=== PATIENT | female | born 1925 | race African-American/Black ===

== ENCOUNTER 2016-07-10 10:23 | Emergency (ER) | payer MEDICARE, MEDICAID ==
[2016-07-10 10:32] VITALS: TEMP 98.3; BMI 32.4
[2016-07-10 11:07] LABS: MPV 9.8 fL (7.4-10.4)
--- NOTE | 2016-07-10 11:15 | EDPRACDOC ---
- General Information Chief Complaint: Generalized Weakness Stated Complaint: WEAKNESS Time Seen by Provider: 07/10/16 10:36 Information Source: Patient Mode of Arrival: Car Home Medications: Home Medications Lovastatin [Mevacor] 40 mg PO HS 09/16/12 Meclizine HCl [Antivert] 25 mg PO QAM PRN 09/16/12 Nifedipine [Procardia Xl] 90 mg PO DAILY 09/16/12 Potassium Chloride [Klor-Con M20] 20 meq PO DAILY 09/16/12 Travoprost (Benzalkonium) [Travatan 0.004% Eye Drop] 1 drop OU HS 09/16/12 HydrALAZINE (Cardiovascular) [Apresoline] 50 mg PO BID 06/04/13 Sitagliptin Phosphate [Januvia] 50 mg PO DAILY 06/04/13 Albuterol Sulfate [Proair Hfa] 1 - 2 puff INH Q4H PRN 09/06/13 Labetalol HCl 100 mg PO BID 09/06/13 Calcitriol [Rocaltrol] 0.25 mcg PO MOWEFR 08/11/14 Cholecalciferol (Vitamin D3) [Vitamin D3 (cholecalciferol)] 5,000 unit PO DAILY 08/11/14 Dexlansoprazole [Dexilant] 30 mg PO DAILY 08/11/14 Ferrous Sulfate [Feosol] 325 mg PO DAILY 08/11/14 Torsemide [Demadex] 20 mg PO DAILY 08/11/14 Aspirin [Adult Low Dose Aspirin EC] 81 mg PO DAILY 06/08/15 [place]-3 Acid Ethyl Esters [Lovaza] 1 gm PO DAILY 06/08/15 Allergies/Adverse Reactions: Allergies Allergy/AdvReac Type Severity Reaction Status Date / Time oxycodone HCl [From Percocet] AdvReac Intermediate MADE HER Verified 07/10/16 10 :28 CRAZY - History of Present Illness Onset: TODAY HPI: PT PRESENTS TO THE ER FOR A HEMOGLOBIN OF 7.8 FOUND BY PCP ON OUTPATIENT TESTING. SHE REPORTS GENERALIZED FATIGUE FOR A LONG TIME. DENIES RECTAL BLEEDING, HEMATURIA, VAGINAL BLEEDING, OR HEMOPTYSIS. SHE SAYS SHE USED TO BE ON A SHOT TO TREAT HER ANEMIA THROUGH DR. CABRERA BUT SHE MISSED HER SHOT IN MARCH. ED Past Medical History - History Reviewed Yes Nurses notes reviewed and agree except as marked - Patient Medical History Neurological History: Reports: Cerebrovascular Accident Cardiac History: Reports: Hypertension, Congestive Heart Failure, Heart Attack, Hypercholesterolemia Respiratory History: Reports: Asthma GI/ History: Reports: Renal Disease (CHRONIC KIDNEY DISEASE), Gastroesophageal Reflux. Denies: Urinary Tract Infection Psychological History: Denies: Depression Systemic History: Reports: Anemia (CRI (Dr. Cabrera)), Diabetes. Denies: Cancer Surgical History: Reports: Hysterectomy - Family Medical History Reports: Hypertension (Mother), Diabetes (son), Stroke (Mother), Cardiac Disorders (Sister). Denies: Cancer - Social Medical History Smoking Status: Never smoker Lives In: Home EDM Review of Systems - Review of Systems ROS Negative Except as Marked: Yes All systems reviewed and were negative except as marked Constitutional: Fatigue Respiratory: negative: Hemoptysis, Shortness of Breath Cardiovascular: negative: Chest Pain Gastrointestinal: negative: Melena, Pain, Vomiting Genitourinary: negative: Hematuria, Vaginal Bleeding - Physical Exam Constitutional: Alert Oriented to: Time, Person, Place Last recorded Vital Signs: Last Vital Signs Temp 98.3 F 07/10/16 10:24 Pulse 75 07/10/16 10:38 Resp 24 07/10/16 10:38 BP 192/84 H 07/10/16 10:38 Pulse Ox 95 07/10/16 10:38 Oxygen Pulse Oxygen Saturation 95 O2 Device Room Air Oxygen Flow Rate Fraction of Inspired Oxygen ( FIO2) - HEENT Head: negative: Deformity, Laceration Eye Exam: Pale Conjunctiva. negative: Conjunctival Injection Oropharynx: negative: Membranes Dry Nose: negative: Congestion, Discharge Neck: negative: Limited ROM - Respiratory/Cardiovascular Respiratory: Normal - CTA. negative: Accessory Muscle Use, Diminished, Tachypnea Cardiovascular: negative: Bradycardia, Tachycardia, Irregular - GI Auscultation: Normal Palpation: Normal Tenderness: Non tender - Musculoskeletal Extremities: Pedal Edema (1+ PT REPORTS CHRONIC/UNCHANGED), Radial Pulse ( PALPABLE) - Integumentary Skin: Warm, Dry. negative: Rash - Neurologic Memory Impaired: Normal Motor Function: Normal Mood Description: Appropriate Thought: Coherent Perception: Normal - Results 07/10/16 10:45 07/10/16 10:45 WBC 8.1 xk/uL (3.8-10.8) 07/10/16 10:45 RBC 3.06 xM/uL (4.20-5.40) L 07/10/16 10:45 Hgb 7.9 g/dL (12.0-16.0) L 07/10/16 10:45 Hct 24.8 % (36-47) L 07/10/16 10:45 MCV 81 fL (81-99) 07/10/16 10:45 MCH 25.7 pg (27-32) L 07/10/16 10:45 MCHC 31.7 g/dl (33-36) L 07/10/16 10:45 RDW 14.1 % (11.5-14.5) 07/10/16 10:45 Plt Count 179 xk/uL (130-400) 07/10/16 10:45 MPV 9.8 fL (7.4-10.4) 07/10/16 10:45 Lab Results 07/10/16 10:45 WBC 8.1 RBC 3.06 L Hgb 7.9 L Hct 24.8 L MCV 81 MCH 25.7 L MCHC 31.7 L RDW 14.1 Plt Count 179 MPV 9.8 Decision Time to Discharge: 12:57 - Departure Yes I personally saw and evaluated the patient. Disposition: Home Condition: Stable Final Diagnosis: Chronic anemia Instructions: Anemia Education/Counseling Given To: Patient, Family Member Education/Counseling Given Regarding: Diagnosis, Treatment, Prognosis, Follow Up Referrals: Seble Beal MD [Primary Care Provider] - Call for Appointment Additional Instructions: YOU SHOULD CONTACT DR. BEAL'S OFFICE OR DR. CABRERA'S OFFICE TO RESTART YOUR INJECTION TO INCREASE YOUR RED BLOOD CELL COUNT.
[2016-07-10 11:23] LABS: BLOOD UREA NITROGEN 41 MG/DL (7-17); CALCIUM 8.9 MG/DL (8.4-10.2); CALCULATED OSMOLALITY 286 MOs/Kg (270-290); CHLORIDE 105 mEq/L (98-107); GLUCOSE 108 MG/DL (70-99); SODIUM LEVEL 143 mEq/L (137-146); TOTAL PROTEIN 7.3 G/DL (6.3-8.2)
[2016-07-10 11:30] LABS: PARTIAL THROMB. TIME 25.2 SEC (22-35)
[2016-07-10 11:52] LABS: SEG NEUTROPHIL 66 % (45-76)
[2016-07-10 12:54] VITALS: BP 196/85; PULSE 71
== END 2016-07-10 13:12 | disposition home or self-care (01) ==
LOC: ED 10:23
DX: D64.9 Anemia, unspecified (principal)
CPT/HCPCS: 36415; 80053; 84484; 85007; 85027; 85610; 85730; 93005; 99284

== ENCOUNTER 2016-07-28 12:07 | Inpatient (IN) | payer MEDICARE, MEDICAID ==
--- NOTE | 2016-07-28 12:48 | EDPRACDOC ---
- General Information Chief Complaint: Dyspnea/Resp distress Stated Complaint: RESP. 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 Home Medications: Home Medications Lovastatin [Mevacor] 40 mg PO HS 09/16/12 Meclizine HCl [Antivert] 25 mg PO QAM PRN 09/16/12 Nifedipine [Procardia Xl] 90 mg PO DAILY 09/16/12 Potassium Chloride [Klor-Con M20] 20 meq PO DAILY 09/16/12 Travoprost (Benzalkonium) [Travatan 0.004% Eye Drop] 1 drop OU HS 09/16/12 Sitagliptin Phosphate [Januvia] 50 mg PO DAILY 06/04/13 Albuterol Sulfate [Proair Hfa] 2 puff INH Q4-6H PRN 09/06/13 Labetalol HCl 100 mg PO BID 09/06/13 Dexlansoprazole [Dexilant] 30 mg PO DAILY 08/11/14 Ferrous Sulfate [Feosol] 325 mg PO DAILY 08/11/14 Torsemide [Demadex] 20 mg PO BID 08/11/14 Aspirin [Adult Low Dose Aspirin EC] 81 mg PO DAILY 06/08/15 HydrALAZINE (Cardiovascular) [Apresoline] 50 mg PO TID 07/15/16 [place]-3 Acid Ethyl Esters [Lovaza] 1 gm PO BID 07/28/16 PEG-Electrolytes (Miralax) [Miralax] 17 gm PO DAILY PRN 07/28/16 Allergies/Adverse Reactions: Allergies Allergy/AdvReac Type Severity Reaction Status Date / Time azithromycin [From Zithromax] Allergy Unknown Verified 07/28/16 12:51 isosorbide Allergy Dizziness Verified 07/28/16 12:51 liraglutide [From Victoza] Allergy Nausea/Vomi Verified 07/28/16 12:51 ting meloxicam [From Mobic] Allergy Unknown Verified 07/28/16 12:51 olmesartan [From Benicar] Allergy Unknown Verified 07/28/16 12:51 oxycodone HCl [From Percocet] AdvReac Intermediate MADE HER Verified 07/28/16 12 :29 CRAZY - History of Present Illness Onset: 5 DAYS HPI: SEVERAL DAYS OF SHORTNESS OF BREATH AGGRAVATED BY LYING FLAT ASSOCIATED WITH PND. NO FEVER CHILLS. NO COUGH. NO CHEST PAIN. RECENT BLOOD TRANSFUSION 2 UNITS FOR ANEMIA CHRONIC DISEASE. SEEN PCP 'S OFFICE TODAY ABNORMAL EKG SHORT OF BREATH REFER TO ED. 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 Denies: Pneumonia GI/ History: Reports: Renal Disease (CHRONIC KIDNEY DISEASE), Gastroesophageal Reflux, Diverticulosis. Denies: Urinary Tract Infection Musculoskeletal History: Reports: Arthritis Psychological History: Reports: Anxiety. Denies: Depression Systemic History: Reports: Anemia (CRI (Dr. Eubanks)), Diabetes. Denies: Cancer Surgical History: Reports: Appendectomy, Cholecystectomy, Hysterectomy - Family Medical History Reports: Hypertension (Mother), Diabetes (son), Stroke (Mother), Cardiac Disorders (Sister). Denies: Cancer - Social Medical History Smoking Status: Former smoker ETOH: None Substance Abuse: None Lives With: Family Lives In: Home EDM Review of Systems - Review of Systems ROS Negative Except as Marked: Yes All systems reviewed and were negative except as marked - Physical Exam Constitutional: Alert (Awake), No apparent distress Oriented to: Time, Person, Place Last recorded Vital Signs: Last Vital Signs Temp 98.3 F 07/28/16 12:15 Pulse 67 07/28/16 12:15 Resp 20 07/28/16 12:15 BP 227/97 H 07/28/16 12:15 Pulse Ox 93 07/28/16 12:15 Oxygen Pulse Oxygen Saturation 93 O2 Device Oxygen Flow Rate Fraction of Inspired Oxygen ( FIO2) - HEENT Head: Normal ( normocephalic) Eye Exam: Normal (PERRL, EOMI, Sclera white) Oropharynx: Normal (Pharynx:Moist without exudate,Gums-no swelling) Tympanic Membrane: Normal Neck: Normal (FROM, trachea at midline) - Respiratory/Cardiovascular Respiratory: Rales. negative: Accessory Muscle Use, Rhonchi, Tachypnea, Wheezes Cardiovascular: Normal (RRR without murmur, gallop or rub) - GI Auscultation: Normal (NABS) Palpation: Normal (Soft,No rebound or guarding, non distended) Tenderness: Non tender Albarran's Sign: Negative - Musculoskeletal Back: Normal (Non-Tender) Extremities: Normal (Normal tone, Pulses 2+ No cyanosis or edema, FROM). negative: Pedal Edema - Integumentary Skin: Normal, Warm, Dry Lymphatics: Normal (no adenopathy) - Neurologic Memory Impaired: Normal Motor Function: Normal (Normal tone, Pulses 2+ No cyanosis or edema, FROM) Cranial Nerve: Normal (CN II-X11 intact sensation, strength 5/5) Cerebellar: Normal Mood Description: Normal Thought: Coherent Perception: Normal ED SOB MDM - Results Result Diagrams: 07/28/16 12:45 07/28/16 12:45 - EKG EKG #1 EKG Time: 12:22 -: Yes EKG interpreted by me Rate: bpm: 69 [place]: Normal Rhythm: NSR Block: None Hypertrophy: None Comments: PROLONGED QT Comparison: 07/10/16 (SIMILAR) - Departure Disposition: Home Condition: Stable Final Diagnosis: Hypertensive urgency, Acute decompensated heart failure Instructions: *Heart Failure (Activity, Diet, Worsening Symptoms, Weight Monitoring)(ED), Chronic Hypertension (ED) Education/Counseling Given To: Patient, Family Member Education/Counseling Given Regarding: Diagnosis, Treatment, Prognosis Referrals: None,No Provider [NonStaff] - One Week Prescriptions: No Action Lovastatin [Mevacor] 40 mg PO HS Potassium Chloride [Klor-Con M20] 20 meq PO DAILY Nifedipine [Procardia Xl] 90 mg PO DAILY Meclizine HCl [Antivert] 25 mg PO QAM PRN PRN Reason: Dizziness Travoprost (Benzalkonium) [Travatan 0.004% Eye Drop] 1 drop OU HS Sitagliptin Phosphate [Januvia] 50 mg PO DAILY Albuterol Sulfate [Proair Hfa] 2 puff INH Q4-6H PRN PRN Reason: Shortness Of Breath Labetalol HCl 100 mg PO BID Dexlansoprazole [Dexilant] 30 mg PO DAILY Torsemide [Demadex] 20 mg PO BID Ferrous Sulfate [Feosol] 325 mg PO DAILY Aspirin [Adult Low Dose Aspirin EC] 81 mg PO DAILY HydrALAZINE (Cardiovascular) [Apresoline] 50 mg PO TID PEG-Electrolytes (Miralax) [Miralax] 17 gm PO DAILY PRN PRN Reason: Constipation [place]-3 Acid Ethyl Esters [Lovaza] 1 gm PO BID Decision to Admit Time: 15:05 Decision to admit date: 07/28/16 Decision to admit: from ED - Physician Consulted Hospitalist Time Called: 13:58 Provider Called: Denis Farfan Time Human Capital Consultant Returned Call: 15:05
[2016-07-28 13:05] LABS: AUTOMATED BASOPHIL 0.7 % (0-2); AUTOMATED EOSINOPHIL 3.4 % (0-5); AUTOMATED LYMPH 15.9 % (17-44); AUTOMATED MONOCYTE 11.2 % (3-10); AUTOMATED NEUTROPHIL 68.8 % (45-76); MPV 9.7 fL (7.4-10.4)
[2016-07-28 13:11] LABS: PARTIAL THROMB. TIME 25.7 SEC (22-35)
[2016-07-28 13:14] LABS: BLOOD UREA NITROGEN 34 MG/DL (7-17); CALCIUM 8.8 MG/DL (8.4-10.2); CALCULATED OSMOLALITY 283 MOs/Kg (270-290); CHLORIDE 105 mEq/L (98-107); GLUCOSE 94 MG/DL (70-99); SODIUM LEVEL 143 mEq/L (137-146); TOTAL PROTEIN 7.5 G/DL (6.3-8.2)
[2016-07-28] MEDS ORDERED: FUROSEMIDE 40 MG/4 ML VIAL IV ONE ×2 (13:52→17:04)
[2016-07-28] MEDS ORDERED: NITROGLYCERINE 2 % OINTMENT PACK TOP ONE (13:53)
[2016-07-28] MEDS ORDERED: LABETALOL 20 MG/4 ML SYRINGE IV ONE (13:57)
--- NOTE | 2016-07-28 14:01 | DIRPT ---
CLINICAL DATA: 89-year-old presenting with several day history of shortness of breath which is worse when in the supine position. By report, abnormal EKG at primary provider's office earlier today. EXAM: CHEST 2 VIEW COMPARISON: 06/08/2015 and earlier. FINDINGS: Cardiac silhouette moderately enlarged. Thoracic aorta atherosclerotic and mildly tortuous, unchanged. Hilar and mediastinal contours otherwise unremarkable. Mild diffuse interstitial pulmonary edema and small bilateral pleural effusions, best seen on the lateral image. No confluent airspace consolidation. 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 IMPRESSION: Mild CHF, with stable moderate cardiomegaly, mild diffuse interstitial pulmonary edema and small bilateral pleural effusions. Electronically Signed By: Denis Cannon M.D. On: 07/28/2016 13:58
[2016-07-28] MEDS ORDERED: SIMETHICONE 80 MG TAB PO PRN (15:46)
[2016-07-28] MEDS ORDERED: GLUCAGON 1 MG VIAL SQ PRN (15:46)
[2016-07-28] MEDS ORDERED: ACETAMINOPHEN 325 MG/TAB TABLET PO PRN (15:46)
[2016-07-28] MEDS ORDERED: TEMAZEPAM 15 MG CAP PO PRN (15:46)
[2016-07-28] MEDS ORDERED: METOCLOPRAMIDE 10 MG/2 ML VIAL IV PRN (15:46)
[2016-07-28] MEDS ORDERED: SODIUM CHLORIDE 0.9% 3 ML FLUSH FLUSH PRN (15:46)
[2016-07-28] MEDS ORDERED: ONDANSETRON HCL 4 MG/2 ML VIAL IV PRN (15:46)
[2016-07-28] MEDS ORDERED: DOCUSATE-SENNA CONCENTRATE TAB PO PRN (15:46)
[2016-07-28] MEDS ORDERED: BENZONATATE 100 MG PERLES PO PRN (15:46)
[2016-07-28] MEDS ORDERED: DEXTROSE 25 GM/50 ML PFS IV PRN (15:46)
[2016-07-28] MEDS ORDERED: GLUCOSE (ORAL GEL) 15 GM TUBE PO PRN (15:46)
[2016-07-28] MEDS ORDERED: ACETAMINOPHEN 650 MG SUPP PR PRN (15:46)
[2016-07-28] MEDS ORDERED: MECLIZINE 25 MG TAB PO PRN (15:50)
[2016-07-28] MEDS ORDERED: ALBUTEROL 6.7 GM MDI INH PRN (15:50)
[2016-07-28] MEDS ORDERED: PEG-ELECTROLYTE 17 GM PACK PO PRN (15:50)
--- NOTE | 2016-07-28 15:56 | HISTPHYS ---
- Chief Complaint short of breath, dizziness - History of Present Illness Megan mooney is a 89 year old Afro [place] Woman who presents with increasing shortness of breath which has become much worse the past three days. She notes it is made worse by lying down or walking around her house. When she lies down at night she has to get up again by 2:00 or 3:00 am to sit up in a chair because she can not breathe lying down. She denies chest pain per se, but notes heaviness and a tight feeling. Her blood pressure is very high o arrival to the ED and yet she is on 3 different blood pressure medications, which she takes as directed. She does not smoke or drink alcohol. 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 Denies: Pneumonia GI/ History: Reports: Renal Disease (CHRONIC KIDNEY DISEASE-3), Gastroesophageal Reflux, Diverticulosis (Hx SBO). Denies: Urinary Tract Infection Musculoskeletal History: Reports: Arthritis Systemic History: Reports: Anemia (CRI (Dr. Eubanks)), Diabetes. Denies: Cancer Neurological History: Reports: Cerebrovascular Accident Psychological History: Reports: Anxiety. Denies: Depression - Surgical History Reports: Appendectomy, Cholecystectomy, Hysterectomy - Medictions/Allergies Allergies azithromycin [From Zithromax] Allergy (Verified 07/28/16 12:51) Unknown isosorbide Allergy (Verified 07/28/16 12:51) Dizziness liraglutide [From Victoza] Allergy (Verified 07/28/16 12:51) Nausea/Vomiting meloxicam [From Mobic] Allergy (Verified 07/28/16 12:51) Unknown olmesartan [From Benicar] Allergy (Verified 07/28/16 12:51) Unknown oxycodone HCl [From Percocet] Adverse Reaction (Intermediate, Verified 07/28/16 12:29) MADE HER CRAZY Home Medications Lovastatin [Mevacor] 40 mg PO HS 09/16/12 Meclizine HCl [Antivert] 25 mg PO QAM PRN 09/16/12 Nifedipine [Procardia Xl] 90 mg PO DAILY 09/16/12 Potassium Chloride [Klor-Con M20] 20 meq PO DAILY 09/16/12 Travoprost (Benzalkonium) [Travatan 0.004% Eye Drop] 1 drop OU HS 09/16/12 Sitagliptin Phosphate [Januvia] 50 mg PO DAILY 06/04/13 Albuterol Sulfate [Proair Hfa] 2 puff INH Q4-6H PRN 09/06/13 Labetalol HCl 100 mg PO BID 09/06/13 Dexlansoprazole [Dexilant] 30 mg PO DAILY 08/11/14 Ferrous Sulfate [Feosol] 325 mg PO DAILY 08/11/14 Torsemide [Demadex] 20 mg PO BID 08/11/14 Aspirin [Adult Low Dose Aspirin EC] 81 mg PO DAILY 06/08/15 HydrALAZINE (Cardiovascular) [Apresoline] 50 mg PO TID 07/15/16 [place]-3 Acid Ethyl Esters [Lovaza] 1 gm PO BID 07/28/16 PEG-Electrolytes (Miralax) [Miralax] 17 gm PO DAILY PRN 07/28/16 - Family History Reports: Hypertension (Mother), Diabetes (son), Stroke (Mother), Cardiac Disorders (Sister). Denies: Cancer - Social History Travel Outside of [place] in the Last 3 Months?: No Lives: With Family Smoking Status: Former smoker Social History: Denies: Alcohol Use - Review of Systems Constitutional: Fatigue, Weakness. negative: Chills, Fever Eyes: No Symptoms Reported Ears: No Symptoms Reported Nose: No Symptoms Reported Mouth: Denture, Poor Dentition Throat/Neck: No Symptoms Reported Respiratory: Cough, Shortness of Breath, Asthma, Dyspnea Cardiovascular: Edema (legs swell when she stands up or sits with legs down), Orthopnea, PND. negative: Chest Pain Gastrointestinal: Constipation, Heartburn. negative: Nausea, Vomiting, Abdominal Pain Genitourinary: Frequency, Postmenopause Neurological: Gait Difficulty, Weakness Musculoskeletal:: Osteoarthritis, Weakness Integumentary: No Symptoms Reported Allergic/Immunologic: No Symptoms Reported Hematologic: Anemia Endocrine: Osteopenia, Diabetes Psychiatric: No Symptoms Reported - Physical Exam Vital Signs: Initial Vitals Temperature 98.3 F 07/28/16 12:15 Pulse Rate 67 07/28/16 12:15 Respiratory Rate 20 07/28/16 12:15 Blood Pressure 227/97 H 07/28/16 12:15 Pulse Oxygen Saturation 93 07/28/16 12:15 Constitutional: No apparent distress, Alert Oriented to: Time, Person, Place - HEENT Head: Normal Eye: Normal (PERRL: EOMI) Oropharynx: Normal, Other (dentures) Tympanic Membrane: Dull ENT EAC: Cerumen Nose: No Symptoms Reported. negative: Bleeding, Congestion, Discharge, Deformity Respiratory: Diminished. negative: Rales, Retractions, Rhonchi Cardiovascular: Bradycardia (regular rhythm and rate, 2/6 sys murmur LLSB) - GI Auscultation: Normal Palpation: Normal (no mass, nondistended). negative: Enlarged liver, Enlarged spleen, Fluid Wave Tenderness: Non tender Albarran's Sign: Negative Rectal Exam: Deferred - Musculoskeletal Back: Normal Extremities: Normal, Edema (trace to 1+) Spine: non-tender, normal alignment, normal inspection - Integumentary Skin: Warm, Dry. negative: Rash Lymphatics: Normal - Neurologic Memory Impaired: Normal Motor Function: Normal Cranial Nerve: Normal Cerebellar: Normal Mood Description: Normal, Appropriate, Calm Thought: Coherent Perception: Normal - Focused CV Perfusion Exam Vital Signs: Last Vital Signs Temp 98.3 F 07/28/16 12:15 Pulse 68 07/28/16 15:32 Resp 20 07/28/16 15:32 BP 199/86 H 07/28/16 15:32 Pulse Ox 93 07/28/16 15:00 - Lab Results Laboratory Tests 07/28/16 07/28/16 07/28/16 12:45 12:45 12:45 WBC 8.1 Hgb 9.1 L Hct 28.2 L Plt Count 183 Neut % (Auto) 68.8 Lymph % (Auto) 15.9 L [place] % (Auto) 11.2 H PT 10.6 INR 1.0 APTT 25.7 Sodium 143 Potassium 4.6 Chloride 105 Carbon Dioxide 28 Anion Gap 15 BUN 34 H Creatinine 2.60 H Estimated GFR (MDRD) 21 L Glucose 94 POC Capillary Glucose Hemoglobin A1c Calculated Osmolality 283 Calcium 8.8 Total Bilirubin 0.6 AST 22 ALT 29 Alkaline Phosphatase 106 Troponin I < 0.01 [id number]-Ddszrhyrljo Pept 4910 H Total Protein 7.5 Albumin 4.1 07/28/16 07/28/16 07/28/16 12:45 16:08 16:51 WBC Hgb Hct Plt Count Neut % (Auto) Lymph % (Auto) [place] % (Auto) PT INR APTT Sodium Potassium Chloride Carbon Dioxide Anion Gap BUN Creatinine Estimated GFR (MDRD) Glucose POC Capillary Glucose 88 Hemoglobin A1c 4.9 Calculated Osmolality Calcium Total Bilirubin AST ALT Alkaline Phosphatase Troponin I 0.01 [id number]-[id number] Pept Total Protein Albumin - Diagnostic Findings EKG: sinus rhythm 68 bpm, NS-IVCD, probably septal [place] age undetermined, [address] elevation V2-3, consider anterior ischemia vs early repolarization CXR:IMPRESSION: Mild CHF, with stable moderate cardiomegaly, mild diffuse interstitial pulmonary edema and small bilateral pleural effusions. Electronically Signed By: Denis Cannon M.D. On: 07/28/2016 13:58 - Assessment (1) Hypertensive urgency I16.0 - HYPERTENSIVE URGENCY Acute Present on Admission: Yes Observation on telemetry, increase dose of Labetolol from 100 mg to 200 mg BID, diurese patient with additional doses of furosemide and recheck labs in AM. If she is breathing better and BP is controlled, she can perhaps be discharged in 24 hours. (2) Acute decompensated heart failure I50.9 - HEART FAILURE, UNSPECIFIED Acute Present on Admission: Yes Very mild exacerbation of diastolic CHF. Her chest is clear on exam, but CXR does reveal increased interstitial edema. She is symptomatic, so will diurese with additional doses of IV furosemide. (3) Anemia of chronic disease D63.8 - ANEMIA IN OTHER CHRONIC DISEASES CLASSIFIED ELSEWHERE Acute Present on Admission: Yes Is followed by Dr. Eubanks for this in hematology clinic. Current Hg =9.1 g/dL. 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 Case Care Discussed with: Patient, Nursing Staff Total Time: 65 min Critical Care: No Couseling Time (>50% in counseling/coordination): Yes Code: 62523
[2016-07-28] MEDS ORDERED: TRAVOPROST 0.004% OPHTH SOLN 2.5 ML BOTTLE OU SCH (16:00)
[2016-07-28] MEDS: OMEGA-3-ACID ETHYL ESTERS 1000 MG CAP PO SCH (16:55)
[2016-07-28] MEDS: TORSEMIDE 20 MG TAB PO SCH (16:55)
[2016-07-28] MEDS: SODIUM CHLORIDE 0.9% 3 ML FLUSH FLUSH SCH (16:56)
[2016-07-28] MEDS: ENOXAPARIN 40 MG/0.4 ML PFS SQ SCH (16:56)
[2016-07-28] MEDS: REGULAR INSULIN 100 UNITS/ML - 3 ML VIAL SQ SCH ×2 (16:56→22:38)
[2016-07-28] MEDS ORDERED: Vaccine Screening Complete SCH (17:00)
[2016-07-28] MEDS ORDERED: TRAVOPROST OU SCH (21:00)
[2016-07-28] MEDS ORDERED: LOVASTATIN 40 MG PO SCH (21:00)
[2016-07-28] MEDS: TRAVOPROST 0.004% OPHTH SOLN 2.5 ML BOTTLE OU SCH (21:05)
[2016-07-28] MEDS: PRAVASTATIN 40 MG TABLET PO SCH (21:05)
[2016-07-28] MEDS: LABETALOL 100 MG TAB PO SCH (21:08)
[2016-07-29 02:54] VITALS: BMI 33.1
[2016-07-29] MEDS: PANTOPRAZOLE 40 MG TAB PO SCH (05:30)
[2016-07-29] MEDS: FUROSEMIDE 40 MG/4 ML VIAL IV SCH ×2 (05:30→17:25)
[2016-07-29] MEDS: SODIUM CHLORIDE 0.9% 3 ML FLUSH FLUSH SCH ×2 (05:31→17:26)
[2016-07-29] MEDS: REGULAR INSULIN 100 UNITS/ML - 3 ML VIAL SQ SCH ×4 (05:35→21:46)
[2016-07-29 05:43] LABS: MPV 10.4 fL (7.4-10.4)
[2016-07-29] MEDS: SITAGLIPTIN 50 MG TAB PO SCH (06:05)
[2016-07-29 06:18] LABS: BLOOD UREA NITROGEN 36 MG/DL (7-17); CALCIUM 8.8 MG/DL (8.4-10.2); CALCULATED OSMOLALITY 282 MOs/Kg (270-290); CHLORIDE 103 mEq/L (98-107); GLUCOSE 83 MG/DL (70-99); LDL (calc.) 102.4 MG/DL (<100); SODIUM LEVEL 143 mEq/L (137-146); VLDL (calc.) 27.6 MG/DL (5-40)
[2016-07-29] MEDS: LABETALOL 100 MG TAB PO SCH ×2 (08:27→21:57)
[2016-07-29] MEDS: POTASSIUM CHLORIDE 20 MEQ TAB PO SCH (08:27)
[2016-07-29] MEDS: TORSEMIDE 20 MG TAB PO SCH (08:28)
[2016-07-29] MEDS ORDERED: NIFEDIPINE 90 MG PO SCH (09:00)
[2016-07-29] MEDS ORDERED: Non-Formulary Medication ITEM (Ferrous Sulfate [Feosol] 325 MG) PO SCH (09:00)
[2016-07-29] MEDS ORDERED: SITAGLIPTIN PHOSPHATE 50 MG PO SCH (09:00)
[2016-07-29] MEDS ORDERED: DEXLANSOPRAZOLE 30 MG PO SCH (09:00)
[2016-07-29] MEDS: OMEGA-3-ACID ETHYL ESTERS 1000 MG CAP PO SCH ×2 (12:00→17:23)
[2016-07-29] MEDS: FERROUS SULFATE 324 MG TAB PO SCH (12:00)
[2016-07-29] MEDS ORDERED: Vaccine Screening Complete SCH (13:00)
--- NOTE | 2016-07-29 15:34 | GENMEDPROG ---
Chief Complaint: HYPERTENSIVE URGENCY, DM-2, CHF, CKD-3 - Physical Examination Vital Signs and I&O: Last Vital Signs Temp 98 F 07/29/16 12:00 Pulse 65 07/29/16 12:19 Resp 18 07/29/16 12:00 BP 157/62 07/29/16 12:00 Pulse Ox 91 07/29/16 12:00 Oxygen Pulse Oxygen Saturation 91 O2 Device Nasal Cannula Oxygen Flow Rate 1 Fraction of Inspired Oxygen ( FIO2) Intake & Output 07/26/16 07/27/16 07/28/16 07/29/16 23:59 23:59 23:59 23:59 Intake Total 240 Output Total 850 300 Balance -610 -300 Patient's weight 84.867 kg Lymphatics: Normal Respiratory: Diminished. negative: Rales, Retractions, Rhonchi - Assessment (1) Hypertensive urgency Acute I16.0 - HYPERTENSIVE URGENCY Comment/Plan: Observation on telemetry, increase dose of Labetolol from 100 mg to 200 mg BID, diurese patient with additional doses of furosemide and recheck labs in AM. If she is breathing better and BP is controlled, she can perhaps be discharged in 24 hours. (2) Acute decompensated heart failure Acute I50.9 - HEART FAILURE, UNSPECIFIED Comment/Plan: Very mild exacerbation of diastolic CHF. Her chest is clear on exam, but CXR does reveal increased interstitial edema. She is symptomatic, so will diurese with additional doses of IV furosemide. (3) Anemia of chronic disease Acute D63.8 - ANEMIA IN OTHER CHRONIC DISEASES CLASSIFIED ELSEWHERE Comment/ Plan: Is followed by Dr. Eubanks for this in hematology clinic. Current Hg =9.1 g /dL. 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
[2016-07-29] MEDS: ENOXAPARIN 40 MG/0.4 ML PFS SQ SCH (17:25)
[2016-07-29] MEDS: TRAVOPROST 0.004% OPHTH SOLN 2.5 ML BOTTLE OU SCH (21:57)
[2016-07-29] MEDS: PRAVASTATIN 40 MG TABLET PO SCH (21:57)
[2016-07-30] MEDS: FUROSEMIDE 40 MG/4 ML VIAL IV SCH (05:21)
[2016-07-30] MEDS: PANTOPRAZOLE 40 MG TAB PO SCH (05:21)
[2016-07-30] MEDS: SODIUM CHLORIDE 0.9% 3 ML FLUSH FLUSH SCH (05:25)
[2016-07-30] MEDS: REGULAR INSULIN 100 UNITS/ML - 3 ML VIAL SQ SCH ×3 (05:38→17:09)
[2016-07-30] MEDS: OMEGA-3-ACID ETHYL ESTERS 1000 MG CAP PO SCH (07:32)
[2016-07-30] MEDS: LABETALOL 100 MG TAB PO SCH (07:32)
[2016-07-30] MEDS: SITAGLIPTIN 50 MG TAB PO SCH (07:32)
[2016-07-30] MEDS: POTASSIUM CHLORIDE 20 MEQ TAB PO SCH (07:33)
[2016-07-30] MEDS ORDERED: METOCLOPRAMIDE 10 MG/2 ML VIAL IV PRN (09:28)
[2016-07-30] MEDS: FERROUS SULFATE 324 MG TAB PO SCH (11:53)
[2016-07-30 12:50] VITALS: BP 165/51; TEMP 98.2
--- NOTE | 2016-07-30 13:54 | GENMEDPROG ---
- Physical Examination Vital Signs and I&O: Last Vital Signs Temp 98.2 F 07/30/16 12:00 Pulse 66 07/30/16 13:27 Resp 20 07/30/16 12:00 BP 165/51 L 07/30/16 12:00 Pulse Ox 93 07/30/16 12:00 Oxygen Pulse Oxygen Saturation 93 O2 Device Room Air Oxygen Flow Rate Fraction of Inspired Oxygen ( FIO2) Intake & Output 07/27/16 07/28/16 07/29/16 07/30/16 23:59 23:59 23:59 23:59 Intake Total 120 340 Output Total 400 1300 Balance -280 -960 Patient's weight 80.467 kg Lymphatics: Normal Respiratory: Diminished. negative: Rales, Retractions, Rhonchi - Assessment (1) Hypertensive urgency Acute I16.0 - HYPERTENSIVE URGENCY Comment/Plan: Observation on telemetry, increase dose of Labetolol from 100 mg to 200 mg BID, diurese patient with additional doses of furosemide and recheck labs in AM. If she is breathing better and BP is controlled, she can perhaps be discharged in 24 hours. (2) Acute decompensated heart failure Acute I50.9 - HEART FAILURE, UNSPECIFIED Comment/Plan: Very mild exacerbation of diastolic CHF. Her chest is clear on exam, but CXR does reveal increased interstitial edema. She is symptomatic, so will diurese with additional doses of IV furosemide. (3) Anemia of chronic disease Acute D63.8 - ANEMIA IN OTHER CHRONIC DISEASES CLASSIFIED ELSEWHERE Comment/ Plan: Is followed by Dr. Eubanks for this in hematology clinic. Current Hg =9.1 g /dL. 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
--- NOTE | 2016-07-30 15:33 | CAPUEKG ---
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
[2016-07-30 15:47] VITALS: PULSE 63
--- NOTE | 2016-07-30 16:00 | PCM.DCS92 ---
- Final/Secondary Discharge Diagnosis (1) Hypertensive urgency Acute I16.0 - HYPERTENSIVE URGENCY Present on Admission: Yes Comment: Observation on telemetry, increase dose of Labetolol from 100 mg to 200 mg BID, diurese patient with additional doses of furosemide and recheck labs in AM. If she is breathing better and BP is controlled, she can perhaps be discharged in 24 hours. (2) Acute decompensated heart failure Acute I50.9 - HEART FAILURE, UNSPECIFIED Present on Admission: Yes Comment: Very mild exacerbation of diastolic CHF. Her chest is clear on exam, but CXR does reveal increased interstitial edema. She is symptomatic, so will diurese with additional doses of IV furosemide. (3) Anemia of chronic disease Acute D63.8 - ANEMIA IN OTHER CHRONIC DISEASES CLASSIFIED ELSEWHERE Present on Admission: Yes Comment: Is followed by Dr. Eubanks for this in hematology clinic. Current Hg = 9.1 g/dL. (4) CKD stage 3 secondary to diabetes Acute E11.22 - TYPE 2 DIABETES MELLITUS W DIABETIC CHRONIC KIDNEY DISEASE; N18.3 - CHRONIC KIDNEY DISEASE, STAGE 3 (MODERATE) Present on Admission: Yes Comment: BUN=34, creatinine = 2.60, eGFR=21, but diabetes seems well controlled now: NdK3u=3.9. Discharge Disposition: Home Discharge Condition: Serious Cognitive Discharge Status: Unimpaired Fuctional Discharge Status: Cane Assistance Physician Follow up/Referrals: Seble Beal MD [Primary Care Provider] - Listed Time Home Medications / New Prescriptions: Continue Lovastatin [Mevacor] 40 mg PO HS Potassium Chloride [Klor-Con M20] 20 meq PO DAILY Nifedipine [Procardia Xl] 90 mg PO DAILY Meclizine HCl [Antivert] 25 mg PO QAM PRN PRN Reason: Dizziness Travoprost (Benzalkonium) [Travatan 0.004% Eye Drop] 1 drop OU HS Sitagliptin Phosphate [Januvia] 50 mg PO DAILY Albuterol Sulfate [Proair Hfa] 2 puff INH Q4-6H PRN PRN Reason: Shortness Of Breath Dexlansoprazole [Dexilant] 30 mg PO DAILY Torsemide [Demadex] 20 mg PO BID Ferrous Sulfate [Feosol] 325 mg PO DAILY Aspirin [Adult Low Dose Aspirin EC] 81 mg PO DAILY HydrALAZINE (Cardiovascular) [Apresoline] 50 mg PO TID PEG-Electrolytes (Miralax) [Miralax] 17 gm PO DAILY PRN PRN Reason: Constipation [place]-3 Acid Ethyl Esters [Lovaza] 1 gm PO BID Changed Labetalol HCl 200 mg PO BID #60 tablet O2 Device: Room Air Diet at Discharge: Heart Healthy, Diabetic, 1800 Calorie Activity: As Tolerated Call Office For: Worsening Symptoms Discontinue use of:: Alcohol, All Types of Tobacco - DC Summary Notes Hospital Course Note:: Discharge summary on patient named GAMALIEL BEAL admitted to [facility] on 07/29/16 by Meli Bryant MD. Date of discharge is [07/30/16]. Gamaliel beal is a 89 year old Afro [place] Woman who presents with increasing shortness of breath which has become much worse the past three days. She notes it is made worse by lying down or walking around her house. When she lies down at night she has to get up again by 2:00 or 3:00 am to sit up in a chair because she can not breathe lying down. She denies chest pain per se, but notes heaviness and a tight feeling. Her blood pressure is very high o arrival to the ED and yet she is on 3 different blood pressure medications, which she takes as directed. She does not smoke or drink alcohol. She was admitted to Observation on telemetry, increased her dose of Labetolol from 100 mg to 200 mg BID, diuresed patient with additional doses of furosemide and rechecked labs in AM. Very mild exacerbation of diastolic CHF. Her chest is clear on exam, but CXR does reveal increased interstitial edema. She is symptomatic, so will diurese with additional doses of IV furosemide. Since she is breathing better and BP is controlled, she can be discharged home. She is to follow-up with Dr. Beal in 1 week. Code: 16702 (>30min.) - Physical Exam Vital Signs: Last Vital Signs Temp 98.2 F 07/30/16 12:00 Pulse 63 07/30/16 15:46 Resp 20 07/30/16 12:00 BP 165/51 L 07/30/16 12:00 Pulse Ox 93 07/30/16 12:00 Oxygen Pulse Oxygen Saturation 93 O2 Device Room Air Oxygen Flow Rate Fraction of Inspired Oxygen ( FIO2) Constitutional: No apparent distress, Alert Oriented to: Time, Person, Place - HEENT Head: Normal Eye: Normal (PERRL: EOMI) Oropharynx: Normal, Other (dentures) Tympanic Membrane: Dull ENT EAC: Cerumen Nose: No Symptoms Reported. negative: Bleeding, Congestion, Discharge, Deformity - Respiratory/Cardiovascular Respiratory: Diminished. negative: Rales, Retractions, Rhonchi Cardiovascular: Normal - GI Auscultation: Normal Palpation: Normal (no mass, nondistended). negative: Enlarged liver, Enlarged spleen, Fluid Wave Tenderness: Non tender Albarran's Sign: Negative Rectal Exam: Deferred - Musculoskeletal Back: Normal Extremities: Normal, Edema (trace to 1+) - Integumentary Skin: Warm, Dry Lymphatics: Normal - Neurologic Memory Impaired: Normal Motor Function: Normal Cranial Nerve: Normal Cerebellar: Normal Mood Description: Normal, Appropriate, Calm Thought: Coherent Perception: Normal
== END 2016-07-30 18:10 | disposition home or self-care (01) | DRG 304 ==
LOC: ED 12:07 → PCU 15:46 → OBSVTOIN 07-29 15:31
PROVIDERS: ADMIT Family Medicine; ATTEND Family Medicine
DX: I16.0 Hypertensive urgency (principal); I50.33 Acute on chronic diastolic (congestive) heart failure; N18.3 Chronic kidney disease, stage 3 (moderate); J44.1 Chronic obstructive pulmonary disease with (acute) exacerbation; I13.0 Hypertensive heart and chronic kidney disease with heart failure and stage 1 through stage 4 chronic kidney disease, or unspecified chronic kidney disease; D63.8 Anemia in other chronic diseases classified elsewhere; D63.1 Anemia in chronic kidney disease; Z86.73 Personal history of transient ischemic attack (TIA), and cerebral infarction without residual deficits; J45.909 Unspecified asthma, uncomplicated; I25.2 Old myocardial infarction; K21.9 Gastro-esophageal reflux disease without esophagitis; Z87.891 Personal history of nicotine dependence; Z79.82 Long term (current) use of aspirin; Z79.899 Other long term (current) drug therapy
CPT/HCPCS: 36415; 71020; 80048; 80053; 80061; 82962; 83036; 83880; 84484; 85025; 85027; 85610; 85730; 86850; 86900; 86901; 93005; 96372; 96374; 96375; 99284; G0378; J1650; J1940; J3490